=== PATIENT | female | born 1955 | race Caucasian/White ===

== ENCOUNTER 2018-01-25 11:41 | Emergency (ER) | payer OTHER ==
[2018-01-25 12:45] LABS: ADD MAN DIFF? NO
[2018-01-25 12:50] LABS: ABNORMAL IP MESSAGE 1; BASOPHILS % 0.3 % (0.0-2.0); EOSINOPHILS % 0.6 % (0.0-7.0); HEMOGLOBIN 8.7 g/dl (12.0-16.0); LYMPHOCYTES # 1.4 10^3/ul (0.8-2.9); LYMPHOCYTES % 44.1 % (15.0-51.0); MEAN CORPUSCULAR HEMOGLOBIN 28.6 pg (29.0-33.0); MEAN CORPUSCULAR HGB CONC 31.1 g/dl (32.0-37.0); MEAN CORPUSCULAR VOLUME 92.1 fl (82.0-101.0); MEAN PLATELET VOLUME 11.2 fl (7.4-10.4); MONOCYTE # 0.3 10^3/ul (0.3-0.9); MONOCYTES % 8.3 % (0.0-11.0); NEUTROPHIL # 1.5 10^3/ul (1.6-7.5); NEUTROPHILS % 46.4 % (39.0-77.0); PLATELET COUNT 87 10^3/UL (140-415); RED BLOOD COUNT 3.04 10^6/ul (4.20-5.40)
[2018-01-25 12:50] LABS: WHITE BLOOD COUNT 3.2 10^3/ul (4.8-10.8)
[2018-01-25] MEDS: ONDANSETRON 4 MG INJ IV (13:08)
[2018-01-25] MEDS: HYDROmorphONE 1 MG/ML SYG IV (13:08)
[2018-01-25 13:10] LABS: POSITIVE DIFF @See below
[2018-01-25 13:12] LABS: ALANINE AMINOTRANSFERASE 22 IU/L (13-69); ALBUMIN 3.3 g/dl (3.3-4.9); ALKALINE PHOSPHATASE 65 IU/L (42-121); ANION GAP 10 (5-13); ASPARTATE AMINO TRANSFERASE 37 IU/L (15-46); BILIRUBIN,INDIRECT 0.5 mg/dl (0-1.1); BILIRUBIN,TOTAL 0.5 mg/dl (0.2-1.3); BLOOD UREA NITROGEN 16 mg/dl (7-20); CALCIUM 9.6 mg/dl (8.4-10.2); CARBON DIOXIDE 24 mmol/L (21-31); CHLORIDE 108 mmol/L (97-110); CREATININE 0.69 mg/dl (0.44-1.00); Estimated GFR > 60 mL/min (>60); GLUCOSE 114 mg/dl (70-220); LIPASE 64 U/L (23-300); POTASSIUM 4.3 mmol/L (3.5-5.1); SODIUM 142 mmol/L (135-144); TOTAL PROTEIN 6.6 g/dl (6.1-8.1)
== END 2018-01-25 15:23 | disposition home or self-care (01) ==
LOC: E/R 11:41
DX: C25.9 Malignant neoplasm of pancreas, unspecified (principal); D64.9 Anemia, unspecified; I10 Essential (primary) hypertension; E11.9 Type 2 diabetes mellitus without complications; J45.901 Unspecified asthma with (acute) exacerbation; Z79.84 Long term (current) use of oral hypoglycemic drugs; Z85.850 Personal history of malignant neoplasm of thyroid; Z91.040 Latex allergy status
CPT/HCPCS: 36415; 71045; 80053; 83690; 85025; 93005; 96374; 96375; 99284-25

== ENCOUNTER 2018-05-29 15:35 | Emergency (ER) | payer OTHER ==
[2018-05-29] MEDS: ONDANSETRON 4 MG INJ IV (19:33)
[2018-05-29] MEDS: SOD CHLORIDE 0.9% 1,000 ML IV (19:33)
[2018-05-29] MEDS: HYDROmorphONE 1 MG/ML SYG IV (19:33)
[2018-05-29] MEDS: LACTATED RINGER'S 1,000 ML IV (19:41)
[2018-05-29 19:44] LABS: HEMATOCRIT 31.2 % (37.0-47.0); HEMOGLOBIN 10.4 g/dl (12.0-16.0); MEAN CORPUSCULAR HEMOGLOBIN 34.9 pg (29.0-33.0); MEAN CORPUSCULAR HGB CONC 33.3 g/dl (32.0-37.0); MEAN CORPUSCULAR VOLUME 104.7 fl (82.0-101.0); PLATELET COUNT 100 10^3/UL (140-415); RED BLOOD COUNT 2.98 10^6/ul (4.20-5.40); RED CELL DISTRIBUTION WIDTH 14.3 % (11.5-14.5)
[2018-05-29 19:44] LABS: WHITE BLOOD COUNT 16.8 10^3/ul (4.8-10.8)
[2018-05-29 19:50] LABS: ADD MAN DIFF? YES; POSITIVE DIFF @See below
[2018-05-29 19:53] LABS: ADD UMIC YES; UR ASCORBIC ACID NEGATIVE (NEGATIVE); UR BILIRUBIN (Dip) NEGATIVE (NEGATIVE); UR BLOOD (Dip) NEGATIVE (NEGATIVE); UR CLARITY SLIGHTLY CLOUDY (CLEAR); UR COLOR YELLOW (YELLOW); UR GLUCOSE (Dip) NEGATIVE (NEGATIVE); UR KETONES (Dip) NEGATIVE (NEGATIVE); UR LEUKOCYTE ESTERASE (Dip) 1+ Leu/ul (NEGATIVE); UR MUCUS MANY /HPF (NONE SEEN); UR NITRITE (Dip) NEGATIVE (NEGATIVE); UR RBC 2 /HPF (0-5); UR SQUAMOUS EPITHELIAL CELL FEW /HPF (FEW); UR TOTAL PROTEIN (Dip) NEGATIVE (NEGATIVE); UR UROBILINOGEN (Dip) NEGATIVE (NEGATIVE); UR WBC 10 /HPF (0-5)
[2018-05-29 20:02] LABS: ALANINE AMINOTRANSFERASE 18 IU/L (13-69); ALBUMIN 3.4 g/dl (3.3-4.9); ALBUMIN/GLOBULIN RATIO 1.21; ALKALINE PHOSPHATASE 104 IU/L (42-121); ANION GAP 7 (5-13); ASPARTATE AMINO TRANSFERASE 28 IU/L (15-46); BILIRUBIN,INDIRECT 0.3 mg/dl (0-1.1); BILIRUBIN,TOTAL 0.3 mg/dl (0.2-1.3); BLOOD UREA NITROGEN 11 mg/dl (7-20); CALCIUM 8.9 mg/dl (8.4-10.2); CARBON DIOXIDE 23 mmol/L (21-31); CHLORIDE 108 mmol/L (97-110); CREATININE 0.58 mg/dl (0.44-1.00); Estimated GFR > 60 mL/min (>60); GLUCOSE 132 mg/dl (70-220); LIPASE 182 U/L (23-300); POTASSIUM 3.6 mmol/L (3.5-5.1); SODIUM 138 mmol/L (135-144); TOTAL PROTEIN 6.2 g/dl (6.1-8.1)
[2018-05-29] MEDS: CEFTRIAXONE 1 GM/50 ML (PMX) 50 ML IVPB (21:20)
[2018-05-29 21:35] LABS: ANISOCYTOSIS 1+ (0-0); BAND NEUTROPHILS #M 1.1 10^3/ul (0.0-0.6); BAND NEUTROPHILS % (M) 7 % (0-4); GIANT THROMBO% (M) 4 % (0-0); LYMPHOCYTES #M 1.8 10^3/ul (0.8-2.9); LYMPHOCYTES % (M) 11 % (15-51); MONOCYTE #M 0.6 10^3/ul (0.3-0.9); MONOCYTES % (M) 4 % (0-11); PLATELET ESTIMATE DECREASED; POIKILOCYTOSIS 1+ (0-0); SEG NEUT #M 13.3 10^3/ul (1.6-7.5); SEGMENTED NEUTROPHILS (M) % 78 % (39-77); SMUDGE%M 41 % (0-0)
== END 2018-05-29 22:50 | disposition home or self-care (01) ==
LOC: E/R 15:35
DX: K59.01 Slow transit constipation (principal); N39.0 Urinary tract infection, site not specified; I10 Essential (primary) hypertension; E11.9 Type 2 diabetes mellitus without complications; E03.9 Hypothyroidism, unspecified; Z85.850 Personal history of malignant neoplasm of thyroid; Z79.84 Long term (current) use of oral hypoglycemic drugs
CPT/HCPCS: 36415; 74176; 80053; 81001; 83690; 85025; 96374; 96375; 99285-25

== ENCOUNTER 2018-06-02 11:23 | Emergency (ER) | payer OTHER ==
[2018-06-02 12:40] LABS: URINE BLOOD (Dip) POC Trace-intact (NEGATIVE); URINE GLUCOSE (Dip) POC Negative (NEGATIVE); URINE KETONES (Dip) POC Trace (NEGATIVE); URINE LEUKOCYTE EST (Dip) POC Negative (NEGATIVE); URINE NITRITE (Dip) POC Negative (NEGATIVE); URINE TOTAL PROTEIN POC 1+ (NEGATIVE)
[2018-06-02 13:13] LABS: ADD MAN DIFF? NO
[2018-06-02] MEDS: HYDROmorphONE 0.5 MG/0.5 ML SYG IV (13:17)
[2018-06-02] MEDS: ONDANSETRON 4 MG INJ IV (13:17)
[2018-06-02 13:18] LABS: ABNORMAL IP MESSAGE 1; HEMATOCRIT 30.4 % (37.0-47.0); HEMOGLOBIN 10.3 g/dl (12.0-16.0); MEAN CORPUSCULAR HEMOGLOBIN 35.3 pg (29.0-33.0); MEAN CORPUSCULAR HGB CONC 33.9 g/dl (32.0-37.0); MEAN CORPUSCULAR VOLUME 104.1 fl (82.0-101.0); MEAN PLATELET VOLUME 10.2 fl (7.4-10.4); PLATELET COUNT 83 10^3/UL (140-415); POSITIVE DIFF @See below; RED BLOOD COUNT 2.92 10^6/ul (4.20-5.40); RED CELL DISTRIBUTION WIDTH 13.7 % (11.5-14.5)
[2018-06-02 13:18] LABS: WHITE BLOOD COUNT 4.3 10^3/ul (4.8-10.8)
[2018-06-02 13:35] LABS: ALANINE AMINOTRANSFERASE 22 IU/L (13-69); ALBUMIN 3.5 g/dl (3.3-4.9); ALBUMIN/GLOBULIN RATIO 1.29; ALKALINE PHOSPHATASE 82 IU/L (42-121); ANION GAP 8 (5-13); ASPARTATE AMINO TRANSFERASE 29 IU/L (15-46); BILIRUBIN,INDIRECT 0.6 mg/dl (0-1.1); BILIRUBIN,TOTAL 0.6 mg/dl (0.2-1.3); BLOOD UREA NITROGEN 10 mg/dl (7-20); CARBON DIOXIDE 22 mmol/L (21-31); CHLORIDE 110 mmol/L (97-110); CREATININE 0.53 mg/dl (0.44-1.00); Estimated GFR > 60 mL/min (>60); GLUCOSE 103 mg/dl (70-220); LIPASE 115 U/L (23-300); POTASSIUM 3.6 mmol/L (3.5-5.1); SODIUM 140 mmol/L (135-144); TOTAL PROTEIN 6.2 g/dl (6.1-8.1)
[2018-06-02] MEDS: HEPARIN (100 UNITS/ML) 5 ML SYG CATHETER (16:40)
== END 2018-06-02 16:45 | disposition home or self-care (01) ==
LOC: E/R 11:23
DX: R10.9 Unspecified abdominal pain (principal); D61.818 Other pancytopenia; E11.9 Type 2 diabetes mellitus without complications; E03.9 Hypothyroidism, unspecified; J45.909 Unspecified asthma, uncomplicated; C25.9 Malignant neoplasm of pancreas, unspecified; I10 Essential (primary) hypertension; Z79.84 Long term (current) use of oral hypoglycemic drugs; Z85.850 Personal history of malignant neoplasm of thyroid; Z91.040 Latex allergy status
CPT/HCPCS: 36415; 80053; 81003; 83690; 85025; 96374; 96375; 99284-25

== ENCOUNTER 2018-06-20 09:49 | Emergency (ER) | payer OTHER ==
[2018-06-20 10:44] LABS: ADD MAN DIFF? NO
[2018-06-20 10:48] LABS: ABNORMAL IP MESSAGE 1; BASOPHILS % 0.4 % (0.0-2.0); EOSINOPHILS % 0.4 % (0.0-7.0); HEMATOCRIT 29.8 % (37.0-47.0); HEMOGLOBIN 9.9 g/dl (12.0-16.0); LYMPHOCYTES # 1.2 10^3/ul (0.8-2.9); LYMPHOCYTES % 15.2 % (15.0-51.0); MEAN CORPUSCULAR HEMOGLOBIN 35.5 pg (29.0-33.0); MEAN CORPUSCULAR HGB CONC 33.2 g/dl (32.0-37.0); MEAN CORPUSCULAR VOLUME 106.8 fl (82.0-101.0); MEAN PLATELET VOLUME 10.1 fl (7.4-10.4); MONOCYTE # 0.5 10^3/ul (0.3-0.9); NEUTROPHIL # 6.1 10^3/ul (1.6-7.5); NEUTROPHILS % 76.1 % (39.0-77.0); RED BLOOD COUNT 2.79 10^6/ul (4.20-5.40); RED CELL DISTRIBUTION WIDTH 13.9 % (11.5-14.5)
[2018-06-20 10:54] LABS: POSITIVE DIFF @See below
[2018-06-20 10:55] LABS: PLATELET COUNT 89 10^3/UL (140-415)
[2018-06-20] MEDS: SOD CHLORIDE 0.9% 1,000 ML IV (10:59)
[2018-06-20] MEDS: ONDANSETRON 4 MG INJ IV ×2 (10:59→12:50)
[2018-06-20] MEDS: HYDROmorphONE 1 MG/ML SYG IV (10:59)
[2018-06-20 11:06] LABS: ALANINE AMINOTRANSFERASE 21 IU/L (13-69); ALBUMIN 3.3 g/dl (3.3-4.9); ALBUMIN/GLOBULIN RATIO 1.17; ALKALINE PHOSPHATASE 98 IU/L (42-121); ANION GAP 11 (5-13); ASPARTATE AMINO TRANSFERASE 28 IU/L (15-46); BILIRUBIN,INDIRECT 0.5 mg/dl (0-1.1); BILIRUBIN,TOTAL 0.5 mg/dl (0.2-1.3); BLOOD UREA NITROGEN 8 mg/dl (7-20); CALCIUM 9.1 mg/dl (8.4-10.2); CARBON DIOXIDE 24 mmol/L (21-31); CHLORIDE 107 mmol/L (97-110); CREATININE 0.52 mg/dl (0.44-1.00); Estimated GFR > 60 mL/min (>60); GLUCOSE 158 mg/dl (70-220); LIPASE 60 U/L (23-300); POTASSIUM 3.5 mmol/L (3.5-5.1); SODIUM 142 mmol/L (135-144); TOTAL PROTEIN 6.1 g/dl (6.1-8.1)
[2018-06-20 11:16] LABS: INR 1.06; PROTIME 13.9 Sec (11.9-14.9); PT RATIO 1.1
[2018-06-20] MEDS: SOD CHLORIDE 0.9% 100 ML (11:28)
[2018-06-20] MEDS: IOHEXOL 300MG/ML 150 ML BTL (11:29)
[2018-06-20 12:00] LABS: ADD UMIC NO; UR ASCORBIC ACID NEGATIVE (NEGATIVE); UR BILIRUBIN (Dip) NEGATIVE (NEGATIVE); UR BLOOD (Dip) NEGATIVE (NEGATIVE); UR CLARITY CLEAR (CLEAR); UR COLOR YELLOW (YELLOW); UR GLUCOSE (Dip) NEGATIVE (NEGATIVE); UR KETONES (Dip) NEGATIVE (NEGATIVE); UR LEUKOCYTE ESTERASE (Dip) NEGATIVE Leu/ul (NEGATIVE); UR NITRITE (Dip) NEGATIVE (NEGATIVE); UR SPECIFIC GRAVITY (Dip) 1.012 (1.003-1.030); UR TOTAL PROTEIN (Dip) NEGATIVE (NEGATIVE); UR UROBILINOGEN (Dip) NEGATIVE (NEGATIVE)
[2018-06-20] MEDS: HEPARIN (100 UNITS/ML) 5 ML SYG CATHETER (14:11)
== END 2018-06-20 14:15 | disposition home or self-care (01) ==
LOC: E/R 09:49
DX: R10.31 Right lower quadrant pain (principal); I10 Essential (primary) hypertension; J45.909 Unspecified asthma, uncomplicated; Z85.07 Personal history of malignant neoplasm of pancreas; Z85.850 Personal history of malignant neoplasm of thyroid; Z91.040 Latex allergy status
CPT/HCPCS: 36415; 74177; 80053; 81003; 83690; 85025; 85610; 85730; 96374; 96375; 96376; 99285-25

== ENCOUNTER 2018-08-25 11:23 | Emergency (ER) | payer OTHER ==
[2018-08-25 13:35] LABS: URINE BLOOD (Dip) POC Negative (NEGATIVE); URINE GLUCOSE (Dip) POC Negative (NEGATIVE); URINE KETONES (Dip) POC 1+ (NEGATIVE); URINE LEUKOCYTE EST (Dip) POC Negative (NEGATIVE); URINE NITRITE (Dip) POC Negative (NEGATIVE); URINE TOTAL PROTEIN POC Trace (NEGATIVE)
[2018-08-25] MEDS: SOD CHLORIDE 0.9% 500 ML IV (13:49)
[2018-08-25 13:52] LABS: ADD MAN DIFF? NO
[2018-08-25 13:54] LABS: ABNORMAL IP MESSAGE 1; BASOPHILS % 0.8 % (0.0-2.0); EOSINOPHILS % 0.8 % (0.0-7.0); HEMATOCRIT 30.6 % (37.0-47.0); HEMOGLOBIN 10.2 g/dl (12.0-16.0); LYMPHOCYTES # 1.3 10^3/ul (0.8-2.9); LYMPHOCYTES % 26.6 % (15.0-51.0); MEAN CORPUSCULAR HEMOGLOBIN 34.3 pg (29.0-33.0); MEAN CORPUSCULAR HGB CONC 33.3 g/dl (32.0-37.0); MEAN PLATELET VOLUME 10.7 fl (7.4-10.4); MONOCYTE # 0.6 10^3/ul (0.3-0.9); MONOCYTES % 11.2 % (0.0-11.0); NEUTROPHIL # 2.9 10^3/ul (1.6-7.5); NEUTROPHILS % 58.6 % (39.0-77.0); PLATELET COUNT 93 10^3/UL (140-415); POSITIVE DIFF @See below; RED BLOOD COUNT 2.97 10^6/ul (4.20-5.40); RED CELL DISTRIBUTION WIDTH 15.4 % (11.5-14.5)
[2018-08-25 13:54] LABS: WHITE BLOOD COUNT 4.9 10^3/ul (4.8-10.8)
[2018-08-25 14:16] LABS: ALANINE AMINOTRANSFERASE 33 IU/L (13-69); ALBUMIN 3.7 g/dl (3.3-4.9); ALBUMIN/GLOBULIN RATIO 1.19; ALKALINE PHOSPHATASE 144 IU/L (42-121); ANION GAP 8 (5-13); ASPARTATE AMINO TRANSFERASE 31 IU/L (15-46); BILIRUBIN,INDIRECT 0.8 mg/dl (0-1.1); BILIRUBIN,TOTAL 0.8 mg/dl (0.2-1.3); BLOOD UREA NITROGEN 9 mg/dl (7-20); CALCIUM 9.1 mg/dl (8.4-10.2); CARBON DIOXIDE 24 mmol/L (21-31); CHLORIDE 109 mmol/L (97-110); CREATININE 0.55 mg/dl (0.44-1.00); Estimated GFR > 60 mL/min (>60); GLUCOSE 105 mg/dl (70-220); LIPASE 42 U/L (23-300); POTASSIUM 3.6 mmol/L (3.5-5.1); SODIUM 141 mmol/L (135-144); TOTAL PROTEIN 6.8 g/dl (6.1-8.1)
[2018-08-25] MEDS: traMADol 50 MG TAB PO (15:30)
[2018-08-25] MEDS: HEPARIN (100 UNITS/ML) 5 ML SYG CATHETER (15:55)
== END 2018-08-25 16:04 | disposition home or self-care (01) ==
LOC: E/R 11:23
DX: R10.13 Epigastric pain (principal); E03.9 Hypothyroidism, unspecified; J45.909 Unspecified asthma, uncomplicated; I10 Essential (primary) hypertension; C25.9 Malignant neoplasm of pancreas, unspecified; D64.9 Anemia, unspecified; D69.6 Thrombocytopenia, unspecified; Z85.850 Personal history of malignant neoplasm of thyroid; Z91.040 Latex allergy status
CPT/HCPCS: 36415; 80053; 81003; 83690; 85025; 93005; 99284-25

== ENCOUNTER 2018-10-10 15:52 | Inpatient (IN) | payer OTHER ==
[2018-10-10] MEDS ORDERED: HYDROmorphONE 1 MG/ML SYG (18:21)
[2018-10-10] MEDS ORDERED: ONDANSETRON 4 MG INJ (18:21)
[2018-10-10] MEDS: SOD CHLORIDE 0.9% 1,000 ML IV (18:36)
[2018-10-10] MEDS: HYDROmorphONE 1 MG/ML SYG IV (18:36)
[2018-10-10] MEDS: ONDANSETRON 4 MG INJ IV (18:37)
[2018-10-10 18:49] LABS: ADD MAN DIFF? NO
[2018-10-10] MEDS: PANTOPRAZOLE IV 80 MG in SOD CHLORIDE 0.9% 100 ML IVPB (18:53)
[2018-10-10 19:02] LABS: BASOPHILS % 0.2 % (0.0-2.0); EOSINOPHILS % 1.7 % (0.0-7.0); HEMATOCRIT 30.3 % (37.0-47.0); HEMOGLOBIN 10.4 g/dl (12.0-16.0); MEAN CORPUSCULAR HEMOGLOBIN 34.6 pg (29.0-33.0); MEAN CORPUSCULAR HGB CONC 34.3 g/dl (32.0-37.0); MEAN CORPUSCULAR VOLUME 100.7 fl (82.0-101.0); MEAN PLATELET VOLUME 11.8 fl (7.4-10.4); MONOCYTES % 0.4 % (0.0-11.0); NEUTROPHILS % 87.5 % (39.0-77.0); PLATELET COUNT 70 10^3/UL (140-415); RED BLOOD COUNT 3.01 10^6/ul (4.20-5.40); RED CELL DISTRIBUTION WIDTH 14.2 % (11.5-14.5)
[2018-10-10 19:02] LABS: WHITE BLOOD COUNT 10.1 10^3/ul (4.8-10.8)
[2018-10-10 19:03] LABS: LYMPHOCYTES % 9.4 % (15.0-51.0); NEUTROPHIL # 8.8 10^3/ul (1.6-7.5)
[2018-10-10] MEDS: PANTOPRAZOLE IV 80 MG in SOD CHLORIDE 0.9% 100 ML IV (19:13)
[2018-10-10 19:36] LABS: ANION GAP 7 (5-13); BLOOD UREA NITROGEN 14 mg/dl (7-20); CARBON DIOXIDE 22 mmol/L (21-31); CHLORIDE 111 mmol/L (97-110); CREATININE 0.51 mg/dl (0.44-1.00); Estimated GFR > 60 mL/min (>60); GLUCOSE 116 mg/dl (70-220); POTASSIUM 3.9 mmol/L (3.5-5.1); SODIUM 140 mmol/L (135-144)
[2018-10-10 19:37] LABS: ALANINE AMINOTRANSFERASE 31 IU/L (13-69); ALBUMIN 3.5 g/dl (3.3-4.9); ALBUMIN/GLOBULIN RATIO 1.12; ALKALINE PHOSPHATASE 90 IU/L (42-121); AMYLASE 50 U/L (11-123); ASPARTATE AMINO TRANSFERASE 37 IU/L (15-46); BILIRUBIN,INDIRECT 1.7 mg/dl (0-1.1); BILIRUBIN,TOTAL 1.7 mg/dl (0.2-1.3); CALCIUM 8.9 mg/dl (8.4-10.2); LIPASE 74 U/L (23-300); TOTAL PROTEIN 6.6 g/dl (6.1-8.1)
[2018-10-10] MEDS ORDERED: LIDOCAINE/MYLANTA 40 ML BTL (20:07)
[2018-10-10] MEDS ORDERED: NACL 0.9% 3 ML SYG IV (20:30)
[2018-10-10] MEDS ORDERED: ACETAMINOPHEN 325 MG TAB PO (20:30)
[2018-10-10] MEDS ORDERED: ONDANSETRON 4 MG INJ IV (20:30)
[2018-10-10] MEDS ORDERED: morphine 2 MG INJ IV (20:30)
[2018-10-10 21:22] LABS: INR 1.22; PROTIME 15.5 Sec (11.9-14.9); PT RATIO 1.2
[2018-10-10 21:24] LABS: PARTIAL THROMBOPLASTIN TIME 46.8 Sec (23.0-35.0)
[2018-10-10] MEDS: HYDROmorphONE 0.5 MG/0.5 ML SYG IV (22:44)
[2018-10-10] MEDS: hydrALAzine 20 MG INJ IV (22:44)
[2018-10-11] MEDS ORDERED: HYDROmorphONE 2 MG/ML SYG IV
[2018-10-11] MEDS: HYDROmorphONE 1 MG/ML SYG IV (00:06)
[2018-10-11] MEDS: ONDANSETRON 4 MG INJ IV ×2 (00:33→09:34)
[2018-10-11 00:53] LABS: ABNORMAL IP MESSAGE 1; HEMATOCRIT 30.5 % (37.0-47.0); HEMOGLOBIN 10.4 g/dl (12.0-16.0); MEAN CORPUSCULAR HEMOGLOBIN 34.7 pg (29.0-33.0); MEAN CORPUSCULAR HGB CONC 34.1 g/dl (32.0-37.0); MEAN CORPUSCULAR VOLUME 101.7 fl (82.0-101.0); MEAN PLATELET VOLUME 12.8 fl (7.4-10.4); PLATELET COUNT 60 10^3/UL (140-415); RED CELL DISTRIBUTION WIDTH 14.5 % (11.5-14.5)
[2018-10-11 00:53] LABS: WHITE BLOOD COUNT 21.9 10^3/ul (4.8-10.8)
[2018-10-11 01:11] LABS: ADD MAN DIFF? YES; POSITIVE DIFF @See below
[2018-10-11 01:48] LABS: ANISOCYTOSIS 2+ (0-0); BAND NEUTROPHILS #M 4.3 10^3/ul (0.0-0.6); BAND NEUTROPHILS % (M) 20 % (0-4); EOSINOPHILS % (M) 2 % (0-7); GIANT THROMBO% (M) 1 % (0-0); LYMPHOCYTES #M 1.7 10^3/ul (0.8-2.9); LYMPHOCYTES % (M) 8 % (15-51); METAMYELOCYTES #M 0.2 10^3/ul (0.0-0.0); METAMYELOCYTES %M 1 % (0-0); MYELOCYTES % (M) 5 % (0-0); POIKILOCYTOSIS 2+ (0-0); SEGMENTED NEUTROPHILS (M) % 64 % (39-77); SMUDGE%M 18 % (0-0)
[2018-10-11 01:52] LABS: PLATELET ESTIMATE DECREASED
[2018-10-11 03:29] LABS: LACTIC ACID 1.8 mmol/L (0.5-2.0)
[2018-10-11] MEDS: PANTOPRAZOLE IV 80 MG in SOD CHLORIDE 0.9% 100 ML IV ×3 (05:54→18:13)
[2018-10-11 06:16] LABS: WHITE BLOOD COUNT 18.9 10^3/ul (4.8-10.8)
[2018-10-11 06:16] LABS: ABNORMAL IP MESSAGE 1; HEMATOCRIT 27.5 % (37.0-47.0); HEMOGLOBIN 9.4 g/dl (12.0-16.0); MEAN CORPUSCULAR HEMOGLOBIN 35.1 pg (29.0-33.0); MEAN CORPUSCULAR HGB CONC 34.2 g/dl (32.0-37.0); MEAN CORPUSCULAR VOLUME 102.6 fl (82.0-101.0); MEAN PLATELET VOLUME 12.7 fl (7.4-10.4); PLATELET COUNT 55 10^3/UL (140-415); RED BLOOD COUNT 2.68 10^6/ul (4.20-5.40); RED CELL DISTRIBUTION WIDTH 14.6 % (11.5-14.5)
[2018-10-11 06:17] LABS: ADD MAN DIFF? YES; POSITIVE DIFF @See below
[2018-10-11] MEDS: LEVOTHYROXINE 100 MCG TAB PO (06:37)
[2018-10-11 06:38] LABS: HEMOGLOBIN A1C 5.4 % (0-5.9)
[2018-10-11 06:44] LABS: CHOL/HDL RATIO 2.7 RATIO; CHOLESTEROL 107 mg/dl (100-200); HDL CHOLESTEROL 39 mg/dl (35-98); LDL CHOLESTEROL,CALCULATED 55 mg/dl; TRIGLYCERIDES 67 mg/dl (0-149)
[2018-10-11 06:44] LABS: MAGNESIUM 2.2 mg/dl (1.7-2.5)
[2018-10-11 08:09] LABS: ANISOCYTOSIS 1+ (0-0); BAND NEUTROPHILS #M 1.5 10^3/ul (0.0-0.6); BAND NEUTROPHILS % (M) 8 % (0-4); BASOPHIL #M 0.1 10^3/ul (0.0-0.0); BASOPHILS % (M) 1 % (0-2); BURR CELLS 3+ (0-0); LYMPHOCYTES #M 0.7 10^3/ul (0.8-2.9); LYMPHOCYTES % (M) 4 % (15-51); METAMYELOCYTES #M 0.3 10^3/ul (0.0-0.0); METAMYELOCYTES %M 2 % (0-0); OVALOCYTES 2+ (0-0); PLATELET ESTIMATE DECREASED; POIKILOCYTOSIS 3+ (0-0); RBC MORPHOLOGY COMMENT @See below; SCHISTOCYTES 1+ (0-0); SEG NEUT #M 16.3 10^3/ul (1.6-7.5); SEGMENTED NEUTROPHILS (M) % 85 % (39-77); SMUDGE%M 18 % (0-0); WBC MORPHOLOGY COMMENT @See below
[2018-10-11] MEDS ORDERED: HYDROCODONE/APAP (10/325) TAB PO (10:00)
[2018-10-11 10:47] LABS: ADD UMIC NO; UR ASCORBIC ACID NEGATIVE (NEGATIVE); UR BILIRUBIN (Dip) NEGATIVE (NEGATIVE); UR BLOOD (Dip) NEGATIVE (NEGATIVE); UR CLARITY CLEAR (CLEAR); UR COLOR YELLOW (YELLOW); UR GLUCOSE (Dip) NEGATIVE (NEGATIVE); UR KETONES (Dip) TRACE mg/dL (NEGATIVE); UR LEUKOCYTE ESTERASE (Dip) NEGATIVE Leu/ul (NEGATIVE); UR NITRITE (Dip) NEGATIVE (NEGATIVE); UR SPECIFIC GRAVITY (Dip) 1.046 (1.003-1.030); UR TOTAL PROTEIN (Dip) NEGATIVE (NEGATIVE); UR UROBILINOGEN (Dip) NEGATIVE (NEGATIVE)
[2018-10-11 11:00] LABS: ANTIBODY IDENTIFICATION 1 1
[2018-10-11] MEDS: METOCLOPRAMIDE 10 MG INJ IV ×3 (12:26→23:40)
[2018-10-11] MEDS: HYOSCYAMINE 0.125 MG SUBL TAB PO ×2 (13:08→22:08)
[2018-10-11] MEDS: HYDROmorphONE 2 MG/ML SYG IV ×3 (13:10→23:41)
[2018-10-11 14:42] LABS: ABNORMAL IP MESSAGE 1; HEMATOCRIT 26.7 % (37.0-47.0); MEAN CORPUSCULAR HEMOGLOBIN 34.9 pg (29.0-33.0); MEAN CORPUSCULAR HGB CONC 33.7 g/dl (32.0-37.0); MEAN CORPUSCULAR VOLUME 103.5 fl (82.0-101.0); MEAN PLATELET VOLUME 12.3 fl (7.4-10.4); PLATELET COUNT 74 10^3/UL (140-415); RED BLOOD COUNT 2.58 10^6/ul (4.20-5.40); RED CELL DISTRIBUTION WIDTH 14.9 % (11.5-14.5)
[2018-10-11 14:42] LABS: WHITE BLOOD COUNT 13.5 10^3/ul (4.8-10.8)
[2018-10-11 14:43] LABS: POSITIVE DIFF @See below
[2018-10-11 14:44] LABS: ADD MAN DIFF? YES
[2018-10-11 15:42] LABS: ANISOCYTOSIS 1+ (0-0); BAND NEUTROPHILS #M 2.4 10^3/ul (0.0-0.6); BAND NEUTROPHILS % (M) 18 % (0-4); EOSINOPHILS % (M) 1 % (0-7); GIANT THROMBO% (M) 3 % (0-0); LYMPHOCYTES #M 0.9 10^3/ul (0.8-2.9); LYMPHOCYTES % (M) 7 % (15-51); PLATELET ESTIMATE DECREASED; POIKILOCYTOSIS 2+ (0-0); SEG NEUT #M 10.3 10^3/ul (1.6-7.5); SEGMENTED NEUTROPHILS (M) % 74 % (39-77); SMUDGE%M 64 % (0-0)
[2018-10-12] MEDS: PANTOPRAZOLE IV 80 MG in SOD CHLORIDE 0.9% 100 ML IV ×2 (04:14→14:08)
[2018-10-12] MEDS: HYDROmorphONE 2 MG/ML SYG IV ×4 (04:19→20:03)
[2018-10-12] MEDS: HYOSCYAMINE 0.125 MG SUBL TAB PO ×2 (06:24→14:08)
[2018-10-12] MEDS: METOCLOPRAMIDE 10 MG INJ IV ×3 (06:24→17:52)
[2018-10-12] MEDS: LEVOTHYROXINE 100 MCG TAB PO (06:24)
[2018-10-12] MEDS: BISACODYL (EC) 5 MG TAB PO (13:04)
[2018-10-12] MEDS: ONDANSETRON 4 MG INJ IV ×2 (15:38→20:02)
[2018-10-12] MEDS: MAGNESIUM CITRATE 300 ML BTL PO (17:52)
[2018-10-12] MEDS: POLYETHYLENE GLYCOL 3350 119 GM POWDER PO (18:46)
[2018-10-12] MEDS: DIPHENHYDRAMINE 25 MG CAP PO (18:57)
[2018-10-13] MEDS: PANTOPRAZOLE IV 80 MG in SOD CHLORIDE 0.9% 100 ML IV ×2 (00:54→09:43)
[2018-10-13] MEDS: METOCLOPRAMIDE 10 MG INJ IV ×4 (00:54→18:00)
[2018-10-13] MEDS: HYOSCYAMINE 0.125 MG SUBL TAB PO ×4 (00:56→21:50)
[2018-10-13] MEDS: HYDROmorphONE 2 MG/ML SYG IV ×3 (01:00→12:06)
[2018-10-13 05:39] LABS: INR 1.14; PROTIME 14.7 Sec (11.9-14.9); PT RATIO 1.1
[2018-10-13] MEDS: LEVOTHYROXINE 100 MCG TAB PO (06:53)
[2018-10-13] MEDS: POLYETHYLENE GLYCOL 3350 119 GM POWDER PO (06:53)
[2018-10-13] MEDS: BISACODYL (EC) 5 MG TAB PO (08:47)
[2018-10-13] MEDS ORDERED: ALBUMIN HUMAN 5% 250 ML IV (15:00)
[2018-10-13] MEDS ORDERED: ONDANSETRON 4 MG INJ IV (15:00)
[2018-10-13] MEDS ORDERED: EPHEDrine 25 MG/5 ML SYG IV (15:00)
[2018-10-13] MEDS: PROPOFOL 20 ML (15:04)
[2018-10-13] MEDS: PHENYLephrine (100 MCG/ML) 10ML SYG (15:04)
[2018-10-13] MEDS: METHADONE (1 MG/ML 5 ML PO UD SYG) PO ×2 (15:47→21:51)
[2018-10-14] MEDS: METOCLOPRAMIDE 10 MG INJ IV ×4 (00:09→17:49)
[2018-10-14] MEDS: LEVOTHYROXINE 100 MCG TAB PO (06:20)
[2018-10-14] MEDS: METHADONE (1 MG/ML 5 ML PO UD SYG) PO ×3 (06:20→22:38)
[2018-10-14] MEDS: HYOSCYAMINE 0.125 MG SUBL TAB PO ×3 (06:20→22:35)
[2018-10-14] MEDS: HYDROmorphONE 1 MG/ML SYG IV ×2 (10:58→20:00)
[2018-10-14] MEDS: IOHEXOL 300MG/ML 150 ML BTL (14:46)
[2018-10-14] MEDS: SOD CHLORIDE 0.9% 100 ML (14:46)
[2018-10-14] MEDS: PANTOPRAZOLE (EC) 40 MG TAB PO (17:49)
[2018-10-15] MEDS: METOCLOPRAMIDE 10 MG INJ IV ×4 (00:26→18:09)
[2018-10-15] MEDS: ACETAMINOPHEN 325 MG TAB PO (02:00)
[2018-10-15] MEDS: CEFTRIAXONE 1 GM/50 ML (PMX) 50 ML IVPB (03:16)
[2018-10-15] MEDS: HYDROmorphONE 1 MG/ML SYG IV ×2 (03:25→10:38)
[2018-10-15] MEDS: PANTOPRAZOLE (EC) 40 MG TAB PO ×2 (05:28→18:09)
[2018-10-15] MEDS: METHADONE (1 MG/ML 5 ML PO UD SYG) PO ×3 (05:28→22:25)
[2018-10-15] MEDS: HYOSCYAMINE 0.125 MG SUBL TAB PO ×3 (05:28→22:24)
[2018-10-15] MEDS: LEVOTHYROXINE 100 MCG TAB PO (05:34)
[2018-10-15 06:07] LABS: WHITE BLOOD COUNT 0.5 10^3/ul (4.8-10.8)
[2018-10-15 06:07] LABS: ABNORMAL IP MESSAGE 1; HEMATOCRIT 23.5 % (37.0-47.0); HEMOGLOBIN 7.7 g/dl (12.0-16.0); MEAN CORPUSCULAR HEMOGLOBIN 34.4 pg (29.0-33.0); MEAN CORPUSCULAR HGB CONC 32.8 g/dl (32.0-37.0); MEAN CORPUSCULAR VOLUME 104.9 fl (82.0-101.0); MEAN PLATELET VOLUME 11.7 fl (7.4-10.4); PLATELET COUNT 64 10^3/UL (140-415); RED BLOOD COUNT 2.24 10^6/ul (4.20-5.40)
[2018-10-15 06:17] LABS: POSITIVE DIFF @See below
[2018-10-15 06:18] LABS: ADD MAN DIFF? YES
[2018-10-15 10:53] LABS: ANISOCYTOSIS 1+ (0-0); BASOPHILS % (M) 2 % (0-2); BURR CELLS 1+ (0-0); EOSINOPHILS % (M) 2 % (0-7); GIANT THROMBO% (M) 19 % (0-0); LYMPHOCYTES #M 0.4 10^3/ul (0.8-2.9); LYMPHOCYTES % (M) 82 % (15-51); METAMYELOCYTES %M 1 % (0-0); MONOCYTES % (M) 10 % (0-11); MYELOCYTES % (M) 1 % (0-0); PLATELET ESTIMATE DECREASED; POIKILOCYTOSIS 3+ (0-0); POLYCHROMASIA 3+ (0-0); PROMYELOCYTES % (M) 1 % (0-0); SEGMENTED NEUTROPHILS (M) % 2 % (39-77); SMUDGE%M 70 % (0-0)
[2018-10-15 12:19] LABS: WHITE BLOOD COUNT 0.5 10^3/ul (4.8-10.8)
[2018-10-15 12:19] LABS: ABNORMAL IP MESSAGE 1; HEMATOCRIT 23.2 % (37.0-47.0); HEMOGLOBIN 7.8 g/dl (12.0-16.0); MEAN CORPUSCULAR HEMOGLOBIN 34.8 pg (29.0-33.0); MEAN CORPUSCULAR HGB CONC 33.6 g/dl (32.0-37.0); MEAN CORPUSCULAR VOLUME 103.6 fl (82.0-101.0); MEAN PLATELET VOLUME 11.2 fl (7.4-10.4); PLATELET COUNT 64 10^3/UL (140-415); RED BLOOD COUNT 2.24 10^6/ul (4.20-5.40); RED CELL DISTRIBUTION WIDTH 14.1 % (11.5-14.5)
[2018-10-15 12:20] LABS: POSITIVE DIFF @See below
[2018-10-15 12:21] LABS: ADD MAN DIFF? YES
[2018-10-15 13:08] LABS: ANISOCYTOSIS 2+ (0-0); BAND NEUTROPHILS % (M) 1 % (0-4); BASOPHILS % (M) 4 % (0-2); BURR CELLS 2+ (0-0); EOSINOPHILS % (M) 3 % (0-7); ERYTHROBLAST% (NRBC) (M) 1 % (0-0); GIANT THROMBO% (M) 11 % (0-0); LYMPHOCYTES #M 0.3 10^3/ul (0.8-2.9); LYMPHOCYTES % (M) 61 % (15-51); MONOCYTE #M 0.1 10^3/ul (0.3-0.9); MONOCYTES % (M) 21 % (0-11); MYELOCYTES % (M) 1 % (0-0); OVALOCYTES 1+ (0-0); PLATELET ESTIMATE DECREASED; POIKILOCYTOSIS 2+ (0-0); REACTIVE LYMPHOCYTES% (M) 2 % (0-0); SEGMENTED NEUTROPHILS (M) % 5 % (39-77); SMUDGE%M 31 % (0-0)
[2018-10-15 15:19] LABS: RETICULOCYTE COUNT # 0.004 X10^6 (0.020-0.110); RETICULOCYTE COUNT % 0.2 % (0.5-1.5)
[2018-10-15 15:19] LABS: RETICULOCYTE RBC 2.28
[2018-10-15 15:30] LABS: LACTATE DEHYDROGENASE 469 IU/L (313-618)
[2018-10-15] MEDS: FILGRASTIM-AAFI 300 MCG/0.5 ML SYRINGE SC (18:09)
[2018-10-16] MEDS: METOCLOPRAMIDE 10 MG INJ IV ×5 (00:02→23:23)
[2018-10-16] MEDS: CEFTRIAXONE 1 GM/50 ML (PMX) 50 ML IVPB (02:50)
[2018-10-16 06:18] LABS: WHITE BLOOD COUNT 0.9 10^3/ul (4.8-10.8)
[2018-10-16 06:18] LABS: ABNORMAL IP MESSAGE 1; HEMATOCRIT 22.2 % (37.0-47.0); HEMOGLOBIN 7.4 g/dl (12.0-16.0); MEAN CORPUSCULAR HEMOGLOBIN 34.3 pg (29.0-33.0); MEAN CORPUSCULAR HGB CONC 33.3 g/dl (32.0-37.0); MEAN CORPUSCULAR VOLUME 102.8 fl (82.0-101.0); MEAN PLATELET VOLUME 11.6 fl (7.4-10.4); PLATELET COUNT 62 10^3/UL (140-415); RED BLOOD COUNT 2.16 10^6/ul (4.20-5.40)
[2018-10-16 06:21] LABS: ADD MAN DIFF? YES; POSITIVE DIFF @See below
[2018-10-16 06:28] LABS: ANION GAP 5 (5-13); BLOOD UREA NITROGEN 13 mg/dl (7-20); CALCIUM 8.3 mg/dl (8.4-10.2); CARBON DIOXIDE 26 mmol/L (21-31); CHLORIDE 104 mmol/L (97-110); CREATININE 0.57 mg/dl (0.44-1.00); Estimated GFR > 60 mL/min (>60); GLUCOSE 91 mg/dl (70-220); POTASSIUM 3.7 mmol/L (3.5-5.1); SODIUM 135 mmol/L (135-144)
[2018-10-16] MEDS: HYOSCYAMINE 0.125 MG SUBL TAB PO ×3 (06:29→21:11)
[2018-10-16] MEDS: METHADONE (1 MG/ML 5 ML PO UD SYG) PO ×3 (06:29→21:17)
[2018-10-16] MEDS: LEVOTHYROXINE 100 MCG TAB PO (06:29)
[2018-10-16] MEDS: PANTOPRAZOLE (EC) 40 MG TAB PO ×2 (06:30→17:28)
[2018-10-16 06:39] LABS: MAGNESIUM 1.8 mg/dl (1.7-2.5)
[2018-10-16 06:39] LABS: PHOSPHORUS 2.8 mg/dl (2.5-4.9)
[2018-10-16 10:01] LABS: BASOPHILS % (M) 2 % (0-2); EOSINOPHILS % (M) 2 % (0-7); GIANT THROMBO% (M) 21 % (0-0); LYMPHOCYTES #M 0.6 10^3/ul (0.8-2.9); LYMPHOCYTES % (M) 74 % (15-51); MONOCYTE #M 0.1 10^3/ul (0.3-0.9); MONOCYTES % (M) 19 % (0-11); RBC MORPHOLOGY COMMENT @See below; REACTIVE LYMPHOCYTES% (M) 1 % (0-0); SEGMENTED NEUTROPHILS (M) % 1 % (39-77); SMUDGE%M 9 % (0-0); WBC MORPHOLOGY COMMENT @See below
[2018-10-16] MEDS: HYDROmorphONE 1 MG/ML SYG IV (11:27)
[2018-10-16 16:51] LABS: HAPTOGLOBIN 65 mg/dL (43-212)
[2018-10-16] MEDS: FILGRASTIM-AAFI 300 MCG/0.5 ML SYRINGE SC (17:29)
[2018-10-16 23:01] LABS: IMMEDIATE SPIN CROSSMATCH 1 1
[2018-10-17] MEDS: CEFTRIAXONE 1 GM/50 ML (PMX) 50 ML IVPB (03:10)
[2018-10-17 05:32] LABS: WHITE BLOOD COUNT 1.8 10^3/ul (4.8-10.8)
[2018-10-17 05:32] LABS: ABNORMAL IP MESSAGE 1; HEMATOCRIT 23.5 % (37.0-47.0); HEMOGLOBIN 8.1 g/dl (12.0-16.0); MEAN CORPUSCULAR HEMOGLOBIN 34.2 pg (29.0-33.0); MEAN CORPUSCULAR HGB CONC 34.5 g/dl (32.0-37.0); MEAN CORPUSCULAR VOLUME 99.2 fl (82.0-101.0); MEAN PLATELET VOLUME 11.5 fl (7.4-10.4); PLATELET COUNT 68 10^3/UL (140-415); RED BLOOD COUNT 2.37 10^6/ul (4.20-5.40); RED CELL DISTRIBUTION WIDTH 14.4 % (11.5-14.5)
[2018-10-17 05:34] LABS: ADD MAN DIFF? YES; POSITIVE DIFF @See below
[2018-10-17 06:08] LABS: MAGNESIUM 1.8 mg/dl (1.7-2.5)
[2018-10-17 06:08] LABS: PHOSPHORUS 2.4 mg/dl (2.5-4.9)
[2018-10-17 06:12] LABS: ANION GAP 4 (5-13); BLOOD UREA NITROGEN 8 mg/dl (7-20); CALCIUM 8.4 mg/dl (8.4-10.2); CARBON DIOXIDE 26 mmol/L (21-31); CHLORIDE 106 mmol/L (97-110); CREATININE 0.56 mg/dl (0.44-1.00); Estimated GFR > 60 mL/min (>60); GLUCOSE 87 mg/dl (70-220); POTASSIUM 3.7 mmol/L (3.5-5.1); SODIUM 136 mmol/L (135-144)
[2018-10-17] MEDS: PANTOPRAZOLE (EC) 40 MG TAB PO ×2 (06:28→17:36)
[2018-10-17] MEDS: HYOSCYAMINE 0.125 MG SUBL TAB PO ×3 (06:28→22:12)
[2018-10-17] MEDS: LEVOTHYROXINE 100 MCG TAB PO (06:28)
[2018-10-17] MEDS: METOCLOPRAMIDE 10 MG INJ IV ×3 (06:28→17:36)
[2018-10-17] MEDS: METHADONE (1 MG/ML 5 ML PO UD SYG) PO ×3 (06:30→22:14)
[2018-10-17 07:26] LABS: ANISOCYTOSIS 2+ (0-0); BAND NEUTROPHILS % (M) 5 % (0-4); EOSINOPHILS % (M) 3 % (0-7); ERYTHROBLAST% (NRBC) (M) 2 % (0-0); GIANT THROMBO% (M) 36 % (0-0); LYMPHOCYTES #M 1.2 10^3/ul (0.8-2.9); LYMPHOCYTES % (M) 68 % (15-51); MONOCYTE #M 0.2 10^3/ul (0.3-0.9); MONOCYTES % (M) 14 % (0-11); PLATELET ESTIMATE DECREASED; POIKILOCYTOSIS 3+ (0-0); PROMYELOCYTES #M 0.1 10^3/ul (0-0); PROMYELOCYTES % (M) 6 % (0-0); SEG NEUT #M 0.1 10^3/ul (1.6-7.5); SEGMENTED NEUTROPHILS (M) % 4 % (39-77); SMUDGE%M 27 % (0-0)
[2018-10-17] MEDS: HYDROmorphONE 1 MG/ML SYG IV (09:48)
[2018-10-17] MEDS: POTASSIUM PHOSPHATE 20 MEQ in SOD CHLORIDE 0.9% 250 ML IVPB (11:42)
[2018-10-17] MEDS: ONDANSETRON 4 MG INJ IV (14:35)
[2018-10-17] MEDS: FILGRASTIM-AAFI 300 MCG/0.5 ML SYRINGE SC (17:37)
[2018-10-18] MEDS: METOCLOPRAMIDE 10 MG INJ IV ×2 (00:10→06:27)
[2018-10-18] MEDS: CEFTRIAXONE 1 GM/50 ML (PMX) 50 ML IVPB (03:10)
[2018-10-18] MEDS: PANTOPRAZOLE (EC) 40 MG TAB PO ×2 (06:27→18:27)
[2018-10-18] MEDS: METHADONE (1 MG/ML 5 ML PO UD SYG) PO ×3 (06:28→21:54)
[2018-10-18] MEDS: HYOSCYAMINE 0.125 MG SUBL TAB PO ×2 (06:28→16:51)
[2018-10-18] MEDS: LEVOTHYROXINE 100 MCG TAB PO (06:30)
[2018-10-18] MEDS ORDERED: METOCLOPRAMIDE 10 MG INJ IV (11:00)
[2018-10-18 11:36] LABS: WHITE BLOOD COUNT 7.5 10^3/ul (4.8-10.8)
[2018-10-18 11:36] LABS: ABNORMAL IP MESSAGE 1; HEMATOCRIT 28.5 % (37.0-47.0); HEMOGLOBIN 9.7 g/dl (12.0-16.0); MEAN CORPUSCULAR HEMOGLOBIN 34.6 pg (29.0-33.0); MEAN CORPUSCULAR VOLUME 101.8 fl (82.0-101.0); MEAN PLATELET VOLUME 11.1 fl (7.4-10.4); RED CELL DISTRIBUTION WIDTH 14.7 % (11.5-14.5)
[2018-10-18 11:38] LABS: ADD MAN DIFF? YES; PLATELET COUNT 96 10^3/UL (140-415); POSITIVE DIFF @See below
[2018-10-18 11:55] LABS: ANION GAP 6 (5-13); BLOOD UREA NITROGEN 5 mg/dl (7-20); CARBON DIOXIDE 25 mmol/L (21-31); CHLORIDE 106 mmol/L (97-110); CREATININE 0.64 mg/dl (0.44-1.00); Estimated GFR > 60 mL/min (>60); GLUCOSE 129 mg/dl (70-220); POTASSIUM 4.2 mmol/L (3.5-5.1); SODIUM 137 mmol/L (135-144)
[2018-10-18 13:10] LABS: ANISOCYTOSIS 2+ (0-0); BAND NEUTROPHILS #M 2.1 10^3/ul (0.0-0.6); BAND NEUTROPHILS % (M) 29 % (0-4); BURR CELLS 1+ (0-0); GIANT THROMBO% (M) 3 % (0-0); LYMPHOCYTES #M 2.1 10^3/ul (0.8-2.9); LYMPHOCYTES % (M) 29 % (15-51); METAMYELOCYTES %M 1 % (0-0); MONOCYTE #M 0.8 10^3/ul (0.3-0.9); MONOCYTES % (M) 11 % (0-11); MYELOCYTES % (M) 1 % (0-0); PLATELET ESTIMATE DECREASED; POIKILOCYTOSIS 2+ (0-0); POLYCHROMASIA 1+ (0-0); PROMYELOCYTES % (M) 1 % (0-0); REACTIVE LYMPHOCYTES #M 0.2 10^3/ul (0.0-0.0); REACTIVE LYMPHOCYTES% (M) 3 % (0-0); SEGMENTED NEUTROPHILS (M) % 25 % (39-77); SMUDGE%M 1 % (0-0)
[2018-10-18] MEDS: FILGRASTIM-AAFI 300 MCG/0.5 ML SYRINGE SC (16:59)
[2018-10-18] MEDS ORDERED: SKIN RESP FACT/SHARK/PH MERCU SUPP PR (21:00)
[2018-10-19] MEDS: CEFTRIAXONE 1 GM/50 ML (PMX) 50 ML IVPB (02:59)
[2018-10-19] MEDS: PANTOPRAZOLE (EC) 40 MG TAB PO (05:51)
[2018-10-19] MEDS: LEVOTHYROXINE 100 MCG TAB PO (05:51)
[2018-10-19] MEDS: METHADONE (1 MG/ML 5 ML PO UD SYG) PO ×2 (05:53→14:17)
[2018-10-19 06:33] LABS: WHITE BLOOD COUNT 15.6 10^3/ul (4.8-10.8)
[2018-10-19 06:33] LABS: ABNORMAL IP MESSAGE 1; HEMATOCRIT 25.2 % (37.0-47.0); HEMOGLOBIN 8.4 g/dl (12.0-16.0); MEAN CORPUSCULAR HGB CONC 33.3 g/dl (32.0-37.0); MEAN PLATELET VOLUME 11.4 fl (7.4-10.4); NUCLEATED RED BLOOD CELLS% 0.1 /100WBC (0.0-0.0); PLATELET COUNT 94 10^3/UL (140-415); RED BLOOD COUNT 2.47 10^6/ul (4.20-5.40); RED CELL DISTRIBUTION WIDTH 14.6 % (11.5-14.5)
[2018-10-19 06:56] LABS: ANION GAP 4 (5-13); BLOOD UREA NITROGEN 5 mg/dl (7-20); CALCIUM 8.6 mg/dl (8.4-10.2); CARBON DIOXIDE 26 mmol/L (21-31); CHLORIDE 108 mmol/L (97-110); CREATININE 0.65 mg/dl (0.44-1.00); Estimated GFR > 60 mL/min (>60); GLUCOSE 81 mg/dl (70-220); MAGNESIUM 1.6 mg/dl (1.7-2.5); PHOSPHORUS 2.9 mg/dl (2.5-4.9); SODIUM 138 mmol/L (135-144)
[2018-10-19 07:13] LABS: ADD MAN DIFF? YES; POSITIVE DIFF @See below
[2018-10-19 09:54] LABS: ANISOCYTOSIS 2+ (0-0); BAND NEUTROPHILS #M 3.5 10^3/ul (0.0-0.6); BAND NEUTROPHILS % (M) 23 % (0-4); BURR CELLS 3+ (0-0); LYMPHOCYTES #M 4.8 10^3/ul (0.8-2.9); LYMPHOCYTES % (M) 31 % (15-51); MONOCYTE #M 0.7 10^3/ul (0.3-0.9); MONOCYTES % (M) 5 % (0-11); PLATELET ESTIMATE DECREASED; POIKILOCYTOSIS 3+ (0-0); POLYCHROMASIA 3+ (0-0); SEG NEUT #M 6.9 10^3/ul (1.6-7.5); SEGMENTED NEUTROPHILS (M) % 41 % (39-77); SMUDGE%M 52 % (0-0); TARGET CELLS 1+ (0-0)
[2018-10-19] MEDS: MAGNESIUM SULFATE 1 GM/D5W 100 ML IVPB (13:44)
[2018-10-19] MEDS: HEPARIN (100 UNITS/ML) 5 ML SYG CATHETER (16:39)
== END 2018-10-19 17:00 | disposition home or self-care (01) | DRG 378 ==
LOC: E/R 15:52 → 2NE 20:18
PROC: 0DJD8ZZ Inspection of Lower Intestinal Tract, Via Natural or Artificial Opening Endoscopic (ICD-10-PCS; principal; 2018-10-13 13:30)
PROC: 0DB98ZX Excision of Duodenum, Via Natural or Artificial Opening Endoscopic, Diagnostic (ICD-10-PCS; 2018-10-13 13:30)
PROC: 30233R1 Transfusion of Nonautologous Platelets into Peripheral Vein, Percutaneous Approach (ICD-10-PCS; 2018-10-13 13:30)
PROC: 30233N1 Transfusion of Nonautologous Red Blood Cells into Peripheral Vein, Percutaneous Approach (ICD-10-PCS; 2018-10-13 13:30)
DX: K92.2 Gastrointestinal hemorrhage, unspecified (principal); C25.9 Malignant neoplasm of pancreas, unspecified; R10.9 Unspecified abdominal pain; E03.9 Hypothyroidism, unspecified; D64.9 Anemia, unspecified; D69.6 Thrombocytopenia, unspecified; K29.70 Gastritis, unspecified, without bleeding; K64.8 Other hemorrhoids; Z92.21 Personal history of antineoplastic chemotherapy; Z88.6 Allergy status to analgesic agent; Z91.040 Latex allergy status; Z85.028 Personal history of other malignant neoplasm of stomach; Z51.5 Encounter for palliative care; K75.9 Inflammatory liver disease, unspecified; D63.0 Anemia in neoplastic disease
CPT/HCPCS: 36415; 36430; 74177; 80048; 80053; 80061; 81003; 82150; 83010; 83036; 83605; 83615; 83690; 83735; 84100; 84443; 85025; 85045; 85610; 85730; 86644; 86850; 86870; 86900; 86901; 86902; 86920; 87040-91; 88305; 88312; 96365; 96375; 97116; 97162; 97167; 97530; 97535; 99285-25

== ENCOUNTER 2018-11-22 11:36 | Emergency (ER) | payer OTHER ==
[2018-11-22] MEDS: ONDANSETRON 4 MG INJ IV (12:39)
[2018-11-22] MEDS: HYDROmorphONE 1 MG/ML SYG IV (12:39)
[2018-11-22] MEDS: SOD CHLORIDE 0.9% 1,000 ML IV (12:39)
[2018-11-22 12:40] LABS: ADD MAN DIFF? NO
[2018-11-22 12:44] LABS: WHITE BLOOD COUNT 3.4 10^3/ul (4.8-10.8)
[2018-11-22 12:44] LABS: ABNORMAL IP MESSAGE 1; BASOPHILS % 0.3 % (0.0-2.0); HEMATOCRIT 29.1 % (37.0-47.0); HEMOGLOBIN 9.9 g/dl (12.0-16.0); LYMPHOCYTES # 0.7 10^3/ul (0.8-2.9); LYMPHOCYTES % 21.6 % (15.0-51.0); MEAN PLATELET VOLUME 9.4 fl (7.4-10.4); MONOCYTE # 0.3 10^3/ul (0.3-0.9); MONOCYTES % 7.6 % (0.0-11.0); NEUTROPHIL # 2.4 10^3/ul (1.6-7.5); NEUTROPHILS % 70.2 % (39.0-77.0); PLATELET COUNT 94 10^3/UL (140-415); RED BLOOD COUNT 2.91 10^6/ul (4.20-5.40)
[2018-11-22 12:48] LABS: POSITIVE DIFF @See below
[2018-11-22 13:03] LABS: ALANINE AMINOTRANSFERASE 33 IU/L (13-69); ALBUMIN/GLOBULIN RATIO 0.93; ALKALINE PHOSPHATASE 80 IU/L (42-121); ANION GAP 7 (5-13); ASPARTATE AMINO TRANSFERASE 38 IU/L (15-46); BILIRUBIN,INDIRECT 1.2 mg/dl (0-1.1); BILIRUBIN,TOTAL 1.2 mg/dl (0.2-1.3); BLOOD UREA NITROGEN 16 mg/dl (7-20); CALCIUM 9.2 mg/dl (8.4-10.2); CARBON DIOXIDE 24 mmol/L (21-31); CHLORIDE 107 mmol/L (97-110); CREATININE 0.54 mg/dl (0.44-1.00); Estimated GFR > 60 mL/min (>60); GLUCOSE 132 mg/dl (70-220); LIPASE 50 U/L (23-300); POTASSIUM 3.6 mmol/L (3.5-5.1); SODIUM 138 mmol/L (135-144); TOTAL PROTEIN 6.2 g/dl (6.1-8.1)
[2018-11-22 13:05] LABS: INR 1.13; PROTIME 14.6 Sec (11.9-14.9); PT RATIO 1.1
[2018-11-22 13:14] LABS: TROPONIN-I < 0.012 ng/ml (0.000-0.120)
[2018-11-22 14:20] LABS: ADD UMIC NO; UR ASCORBIC ACID NEGATIVE (NEGATIVE); UR BILIRUBIN (Dip) NEGATIVE (NEGATIVE); UR BLOOD (Dip) NEGATIVE (NEGATIVE); UR CLARITY CLEAR (CLEAR); UR COLOR YELLOW (YELLOW); UR GLUCOSE (Dip) NEGATIVE (NEGATIVE); UR KETONES (Dip) 1+ mg/dL (NEGATIVE); UR LEUKOCYTE ESTERASE (Dip) NEGATIVE Leu/ul (NEGATIVE); UR NITRITE (Dip) NEGATIVE (NEGATIVE); UR TOTAL PROTEIN (Dip) NEGATIVE (NEGATIVE); UR UROBILINOGEN (Dip) NEGATIVE (NEGATIVE)
[2018-11-22] MEDS: HEPARIN (100 UNITS/ML) 5 ML SYG CATHETER (15:30)
== END 2018-11-22 15:31 | disposition home or self-care (01) ==
LOC: E/R 15:31
DX: C25.9 Malignant neoplasm of pancreas, unspecified (principal); I10 Essential (primary) hypertension; J45.909 Unspecified asthma, uncomplicated; Z91.040 Latex allergy status; Z85.028 Personal history of other malignant neoplasm of stomach; Z96.652 Presence of left artificial knee joint
CPT/HCPCS: 36415; 71045; 74176; 80053; 81003; 83690; 84484; 85025; 85610; 93005; 96374; 96375; 99285-25